=== PATIENT | male | born 1990 | race Caucasian/White ===

== ENCOUNTER 2024-10-11 09:25 | Emergency (ER) | payer MEDICAID ==
[2024-10-11 10:12] LABS: APPEARANCE,URINE SLIGHTLY CLOUDY (CLEAR); BILIRUBIN,URINE SMALL (NEGATIVE); GLUCOSE,URINE NEGATIVE (NEGATIVE); KETONES,URINE TRACE mg/dL (NEGATIVE); LEUKOCYTE ESTERASE,URINE NEGATIVE (NEGATIVE); NITRITE,URINE NEGATIVE (NEGATIVE); OCCULT BLOOD,URINE MODERATE (NEGATIVE); PH,URINE 5.5 (5.0-8.0); PROTEIN,URINE >=300 mg/dL (NEGATIVE); UROBILINOGEN,URINE 0.2 EU/dL (0.2-1.0)
[2024-10-11 10:18] LABS: AMORPHOUS SEDIMENT,URINE NOT SEEN; AMPHETAMINES SCREEN, URINE NEGATIVE (NEGATIVE); BACTERIA,URINE NOT SEEN; BARBITURATE SCREEN,URINE NEGATIVE (NEGATIVE); BENZODIAZEPINES SCREEN,URINE NEGATIVE (NEGATIVE); COLOR,URINE OTHER (YELLOW); EPITHELIAL CELLS,URINE FEW; METHADONE SCREEN, URINE NEGATIVE (NEGATIVE); METHAMPHETAMINES SCREEN, URINE NEGATIVE (NEGATIVE); MUCUS,URINE MANY; OXYCODONE SCREEN,URINE NEGATIVE (NEGATIVE); PROPOXYPHENE SCREEN,URINE NEGATIVE (NEGATIVE); RBC,URINE 0-5 (0-5); THC SCREEN,URINE 50 NG/ML PRESUMPTIVE POSITIVE (NEGATIVE); WBC,URINE 0-5 (0-5)
[2024-10-11 10:24] LABS: BASE EXCESS VENOUS -1.7 mm/L; BASOPHILS ABSOLUTE AUTO 0.09 K/uL (0.00-0.10); BASOPHILS PERCENT AUTO 0.5 % (0.1-1.3); BICARBONATE,VENOUS 19.6 mmol/L; CARBOXYHEMOGLOBIN 2.4 % (0.0-1.6); EOSINOPHILS ABSOLUTE AUTO 0.03 K/uL (0.00-0.40); EOSINOPHILS PERCENT AUTO 0.2 % (0.0-5.4); HEMATOCRIT 44.5 % (38.4-49.7); HEMOGLOBIN 15.3 g/dL (12.9-16.9); IMMATURE GRAN PERCENT AUTO 0.6 % (0.0-0.7); LYMPHOCYTES ABSOLUTE AUTO 2.22 K/uL (0.8-3.3); LYMPHOCYTES PERCENT AUTO 12.8 % (11.4-47.7); MEAN CORPUSCULAR HEMOGLOBIN 27.7 pg (31.6-35.5); MEAN CORPUSCULAR HGB CONC 34.4 g/dL (31.6-35.5); MEAN CORPUSCULAR VOLUME 80.6 fL (81.4-99.0); METHEMOGLOBIN 0.9 %; MONOCYTES ABSOLUTE AUTO 0.76 K/uL (0.20-0.90); MONOCYTES PERCENT AUTO 4.4 % (3.3-12.6); NEUTROPHILS PERCENT AUTO 81.5 % (40.0-78.1); O2 SATURATION VENOUS 97.3; OXYHEMOGLOBIN 94.1 %; PCO2 VENOUS 26.1 mm/Hg; PH,VENOUS 7.488 (7.350-7.450); PLATELET COUNT,PLT 347 K/uL (130-375); PO2 VENOUS 81.7 mm/Hg; RED BLOOD CELL COUNT 5.52 M/uL (4.14-5.76); TOTAL HEMOGLOBIN 15.8 g/dL (13.5-18.0); WHITE BLOOD CELL COUNT,WBC 17.4 K/uL (3.2-11.0)
[2024-10-11] MEDS: Sodium Chloride 0.9% 1,000 ML IV ONE (10:30)
[2024-10-11] MEDS: Ondansetron 4 MG/2 ML SDV IVPUSH ONE (10:30)
[2024-10-11] MEDS: Ketorolac 30 MG/ML SDV IVPUSH ONE (10:30)
[2024-10-11 10:47] LABS: A/G RATIO 1.4 (1.2-2.2); ALANINE AMINOTRANSFERASE,ALT 31 U/L (12-78); ALBUMIN 4.7 g/dL (3.4-5.0); ALKALINE PHOSPHATASE 86 U/L (46-116); ANION GAP 20.4 mmol/L (5.0-14.0); ASPARTATE AMNIOTRANSFERASE,AST 22 U/L (15-37); BILIRUBIN TOTAL 0.8 mg/dL (0.2-1.0); BLOOD UREA NITROGEN,BUN 20 mg/dL (7-18); CALCIUM 9.7 mg/dL (8.5-10.1); CARBON DIOXIDE,CO2 21 mmol/L (21-32); CHLORIDE,CL 100 mmol/L (100-108); CREATININE 1.3 mg/dL (0.8-1.3); EST CRCL DRUG DOSING (CG) 82.67 mL/min; ESTIMATED GFR 74 mL/min (>60); GLUCOSE RANDOM 162 mg/dL (74-106); POTASSIUM,K 3.4 mmol/L (3.6-5.2); SODIUM,NA 138 mmol/L (140-148)
[2024-10-11 10:48] LABS: C-REACTIVE PROTEIN 0.73 mg/dL (<0.50)
[2024-10-11] MEDS: Piperacillin/Tazobactam 4.5 GM in Sodium Chloride 0.9% 100 ML IV ONE (11:25)
[2024-10-11] MEDS: droPERidol 5 MG/2 ML SDV IV ONE (11:58)
[2024-10-11] MEDS ORDERED: Naloxone 0.4 MG/ML SDV IVPUSH PRN (12:02)
[2024-10-11] MEDS: HYDROmorphone 1 MG/ML Syringe IVPUSH PRN (12:06)
[2024-10-11] MEDS: NS + KCl 20mEq/L 1,000 ML IV SCH (14:26)
== END 2024-10-11 17:05 | disposition home or self-care (01) ==
LOC: JP.ED 09:25
DX: K80.20 Calculus of gallbladder without cholecystitis without obstruction (principal); Z91.030 Bee allergy status; Z88.8 Allergy status to other drugs, medicaments and biological substances; Z79.899 Other long term (current) drug therapy
CPT/HCPCS: 36415; 74176; 76705; 80053; 80305; 80307; 81001; 82803; 83605; 83690; 84145; 85025; 86140; 87040; 96361; 96365; 96366; 96367; 96375; 99283; 99284; J1171; J1790; J1885; J2405; J2543; J3480; J7030

== ENCOUNTER 2024-10-12 07:22 | Day surgery (SDC) | payer MEDICAID ==
[2024-10-12 07:45] LABS: BASOPHILS ABSOLUTE AUTO 0.03 K/uL (0.00-0.10); BASOPHILS PERCENT AUTO 0.2 % (0.1-1.3); EOSINOPHILS PERCENT AUTO 0.1 % (0.0-5.4); HEMATOCRIT 41.7 % (38.4-49.7); HEMOGLOBIN 14.5 g/dL (12.9-16.9); IMMATURE GRAN ABSOLUTE AUTO 0.06 K/uL (0.00-0.23); IMMATURE GRAN PERCENT AUTO 0.4 % (0.0-0.7); LYMPHOCYTES ABSOLUTE AUTO 2.12 K/uL (0.8-3.3); LYMPHOCYTES PERCENT AUTO 14.1 % (11.4-47.7); MEAN CORPUSCULAR HGB CONC 34.8 g/dL (31.6-35.5); MEAN CORPUSCULAR VOLUME 80.7 fL (81.4-99.0); MONOCYTES ABSOLUTE AUTO 0.76 K/uL (0.20-0.90); MONOCYTES PERCENT AUTO 5.1 % (3.3-12.6); NEUTROPHILS ABSOLUTE AUTO 12.04 K/uL (1.0-7.6); NEUTROPHILS PERCENT AUTO 80.1 % (40.0-78.1); PLATELET COUNT,PLT 317 K/uL (130-375); RED BLOOD CELL COUNT 5.17 M/uL (4.14-5.76)
[2024-10-12 07:46] LABS: EOSINOPHILS ABSOLUTE AUTO 0.02 K/uL (0.00-0.40)
[2024-10-12 07:55] LABS: BASE EXCESS VENOUS 1.5 mm/L; BICARBONATE,VENOUS 23.1 mmol/L; CARBOXYHEMOGLOBIN 1.7 % (0.0-1.6); METHEMOGLOBIN 1.1 %; O2 SATURATION VENOUS 73.7; OXYHEMOGLOBIN 71.6 %; PH,VENOUS 7.513 (7.350-7.450); TOTAL HEMOGLOBIN 14.5 g/dL (13.5-18.0)
[2024-10-12 07:56] LABS: PO2 VENOUS 38.4 mm/Hg
[2024-10-12 08:08] LABS: A/G RATIO 1.4 (1.2-2.2); ALANINE AMINOTRANSFERASE,ALT 40 U/L (12-78); ALBUMIN 4.4 g/dL (3.4-5.0); ALKALINE PHOSPHATASE 79 U/L (46-116); ASPARTATE AMNIOTRANSFERASE,AST 24 U/L (15-37); BILIRUBIN TOTAL 1.1 mg/dL (0.2-1.0); BLOOD UREA NITROGEN,BUN 15 mg/dL (7-18); CALCIUM 9.1 mg/dL (8.5-10.1); CARBON DIOXIDE,CO2 23 mmol/L (21-32); CHLORIDE,CL 101 mmol/L (100-108); CREATININE 1.2 mg/dL (0.8-1.3); EST CRCL DRUG DOSING (CG) 86.74 mL/min; ESTIMATED GFR 81 mL/min (>60); GLUCOSE RANDOM 119 mg/dL (74-106); POTASSIUM,K 3.6 mmol/L (3.6-5.2); PROTEIN TOTAL,TP 7.5 g/dL (6.4-8.2); SODIUM,NA 139 mmol/L (140-148)
[2024-10-12 08:09] LABS: ANION GAP 18.6 mmol/L (5.0-14.0); C-REACTIVE PROTEIN < 0.50 mg/dL (<0.50)
[2024-10-12] MEDS: Sodium Chloride 0.9% 1,000 ML IV ONE ×2 (08:12→11:29)
[2024-10-12] MEDS: Ondansetron 4 MG/2 ML SDV IVPUSH ONE (08:13)
[2024-10-12] MEDS ORDERED: Naloxone 0.4 MG/ML SDV IVPUSH PRN (08:28)
[2024-10-12 08:29] LABS: APPEARANCE,URINE CLEAR (CLEAR); BILIRUBIN,URINE NEGATIVE (NEGATIVE); COLOR,URINE YELLOW (YELLOW); GLUCOSE,URINE NEGATIVE (NEGATIVE); KETONES,URINE 40 mg/dL (NEGATIVE); LEUKOCYTE ESTERASE,URINE NEGATIVE (NEGATIVE); NITRITE,URINE NEGATIVE (NEGATIVE); OCCULT BLOOD,URINE SMALL (NEGATIVE); PROTEIN,URINE TRACE mg/dL (NEGATIVE); UROBILINOGEN,URINE 0.2 EU/dL (0.2-1.0)
[2024-10-12 08:39] LABS: AMORPHOUS SEDIMENT,URINE NOT SEEN; BACTERIA,URINE RARE; EPITHELIAL CELLS,URINE RARE; MUCUS,URINE FEW; RBC,URINE 0-5 (0-5); WBC,URINE 0-5 (0-5)
[2024-10-12 08:40] LABS: AMPHETAMINES SCREEN, URINE NEGATIVE (NEGATIVE); BARBITURATE SCREEN,URINE NEGATIVE (NEGATIVE); BENZODIAZEPINES SCREEN,URINE NEGATIVE (NEGATIVE); METHADONE SCREEN, URINE NEGATIVE (NEGATIVE); METHAMPHETAMINES SCREEN, URINE NEGATIVE (NEGATIVE); OXYCODONE SCREEN,URINE NEGATIVE (NEGATIVE); PROPOXYPHENE SCREEN,URINE NEGATIVE (NEGATIVE); THC SCREEN,URINE 50 NG/ML PRESUMPTIVE POSITIVE (NEGATIVE)
[2024-10-12] MEDS: HYDROmorphone 1 MG/ML Syringe IVPUSH PRN (11:28)
[2024-10-12] MEDS: FLUoxetine 10 MG Cap PO ONE (11:29)
[2024-10-12] MEDS: QUEtiapine 25 MG Tab PO ONE (11:29)
[2024-10-12] MEDS ORDERED: ceFAZolin 1 GM in Sodium Chloride 0.9% 50 ML IV ONE (14:24)
[2024-10-12] MEDS ORDERED: Bupivacaine 0.25%/EPINEPHrine 1:200,000 30 ML SDV ONE (14:50)
[2024-10-12] MEDS ORDERED: Dexamethasone 4 MG/ML SDV ONE (15:23)
[2024-10-12] MEDS ORDERED: Succinylcholine 200 MG/10 ML MDV ONE (15:23)
[2024-10-12] MEDS ORDERED: Ondansetron 4 MG/2 ML SDV ONE (15:23)
[2024-10-12] MEDS ORDERED: Glycopyrrolate 0.2 MG/ML 5 ML MDV ONE (15:23)
[2024-10-12] MEDS ORDERED: Rocuronium 50 MG/5 ML Vial ONE (15:23)
[2024-10-12] MEDS ORDERED: Neostigmine Methylsulfate 10 MG/10 ML MDV ONE (15:23)
[2024-10-12] MEDS ORDERED: Propofol 200 MG/20 ML SDV ONE (15:23)
[2024-10-12] MEDS ORDERED: fentaNYL 250 MCG/5 ML SDV ONE ×2 (15:23→16:04)
[2024-10-12] MEDS: ceFAZolin 1 GM in Premix Bag 1 BAG IV ONE (15:45)
[2024-10-12] MEDS ORDERED: Lactated Ringers 1,000 ML ONE (15:51)
[2024-10-12] MEDS ORDERED: Labetalol 20 MG/4 ML Syringe ONE (16:15)
[2024-10-12] MEDS ORDERED: Atropine 0.4 MG/ML SDV ONE (16:50)
[2024-10-12] MEDS: Bupivacaine 0.25%/EPINEPHrine 1:200,000 30 ML SDV ONE (17:27)
[2024-10-12] MEDS: oxyCODONE 5 MG Tab PO PRN (18:18)
== END 2024-10-12 19:00 | disposition home or self-care (01) ==
LOC: JP.ED 07:22 → JP.SDS 15:37 → JP.MS 18:05 → JP.SDS 19:00
PROVIDERS: ATTEND Surgery
DX: K80.12 Calculus of gallbladder with acute and chronic cholecystitis without obstruction (principal); F41.9 Anxiety disorder, unspecified; F32.A Depression, unspecified; E66.9 Obesity, unspecified; F17.200 Nicotine dependence, unspecified, uncomplicated; Z79.899 Other long term (current) drug therapy; Z91.030 Bee allergy status; Z88.8 Allergy status to other drugs, medicaments and biological substances
CPT/HCPCS: 00790; 36415; 80053; 80305; 80307; 81001; 82803; 83605; 85025; 86140; 88304; 96361; 96374; 96375; 99284; A9270; J0330; J0461; J0689; J1100; J1171; J1596; J1920; J2405; J2704; J2710; J3010; J7030; J7120; J3490